=== PATIENT | female | born 1990 ===

== ENCOUNTER 2021-09-18 17:10 | Emergency (ER) | payer MEDICAID, OTHER ==
[~2021-09-18] VITALS: Ht 165.1 cm; Wt 59.0 kg
[2021-09-18 17:35] LABS: Urine Bacteria NONE SEEN /hpf (None Seen); Urine Blood Negative /uL (Negative); Urine Mucus FEW (None Seen); Urine WBC 1 /hpf (0 - 5)
[2021-09-18 18:03] LABS: Basophils # (auto) 0 10 ^3/uL (0-0.2); Basophils % (auto) 0.2 % (0.0-2.0); Eosinophils # (auto) 0 10 ^3/uL (0-0.8); Hematocrit 37.7 % (36.0-46.0); Lymphocytes # (auto) 1.1 10 ^3/uL (0.4-5.4); Mean Corpuscular Hemoglobin 23.7 pg (28.0-32.0); Mean Corpuscular Hgb Conc. 31.8 g/dL (32.0-36.0); Mean Corpuscular Volume 74.5 fL (80.0-100.0); Monocytes # (auto) 0.7 10 ^3/uL (0-1.3); Monocytes % (auto) 8.5 % (0.0-12.0); Neutrophils # (auto) 6.2 10 ^3/uL (1.6-8.6); Neutrophils % (auto) 77.3 % (37.0-80.0); Red Blood Cells 5.06 10^6/uL (4.0-5.20); Red Cell Distribution Width 14.6 % (11.8-14.3)
[2021-09-18 18:19] LABS: Albumin 4.2 g/dL (3.4-5.0); Potassium 3.9 mmol/L (3.5-5.1)
[2021-09-18 18:22] LABS: BUN/Creatinine Ratio 13.7; Bilirubin, Total 0.5 mg/dL (0.2-1.0); Total Protein 7.6 g/dL (6.4-8.2)
[2021-09-18] MEDS ORDERED: KETOROLAC TROMETH 60MG/2ML VIAL IM ONE (21:15)
[2021-09-18 21:27] VITALS: BP 119/78
== END 2021-09-18 21:29 | disposition home or self-care (01) ==
LOC: ER 17:10
DX: K59.00 Constipation, unspecified (principal); Z32.02 Encounter for pregnancy test, result negative
CPT/HCPCS: 36415; 74176; 80053; 81001; 81025; 85025; 96372; 99284; J1885